=== PATIENT | male | born 1985 | race Caucasian/White ===

== ENCOUNTER 2016-11-09 07:10 | Emergency (ER) | payer MEDICAID, OTHER ==
[~2016-11-09] VITALS: Ht 162.6 cm; Wt 78.0 kg
[~2016-11-09 07:10] MED LIST: ALBU8.5H5 INH; LIDOCAINE 2% (SDV) 5 ML INJ ONE; MIDAZOLAM 1 MG/ML 2 ML INJ ONE; PRED20TA PO
[2016-11-09 07:15] VITALS: Ht 162.6 cm; Wt 78.0 kg
[2016-11-09] MEDS ORDERED: ONDANSETRON 4 MG INJ ONE (07:21)
[2016-11-09] MEDS ORDERED: morphine 4 MG/ML VIAL ONE ×3 (07:22→07:34)
[2016-11-09] MEDS ORDERED: morphine 4 MG/ML VIAL IV STA ×4 (07:24→08:40)
[2016-11-09] MEDS ORDERED: ONDANSETRON 4 MG INJ IV STA (07:24)
[2016-11-09] MEDS ORDERED: HALOPERIDOL 5 MG INJ ONE (07:27)
[2016-11-09] MEDS ORDERED: SOD CHLORIDE 0.9% 1,000 ML IV ONE ×2 (07:30→09:00)
[2016-11-09] MEDS ORDERED: HALOPERIDOL 5 MG INJ IV ONE ×2 (07:30→09:00)
[2016-11-09 07:44] LABS: ADD SCAN DIFF NO
[2016-11-09 07:46] LABS: BASOPHIL # 0.1 10^3/ul (0.0-0.1); BASOPHILS % 0.3 % (0.0-2.0); EOSINOPHILS % 0.1 % (0.0-7.0); HEMATOCRIT 48.3 % (42.0-52.0); LYMPHOCYTES # 1.6 10^3/ul (0.8-2.9); LYMPHOCYTES % 8.3 % (15.0-51.0); MEAN CORPUSCULAR HEMOGLOBIN 31.2 pg (29.0-33.0); MEAN CORPUSCULAR HGB CONC 35.2 g/dl (32.0-37.0); MEAN CORPUSCULAR VOLUME 88.6 fl (82.0-101.0); MEAN PLATELET VOLUME 9.4 fl (7.4-10.4); MONOCYTE # 1.5 10^3/ul (0.3-0.9); MONOCYTES % 7.4 % (0.0-11.0); NEUTROPHIL # 16.4 10^3/ul (1.6-7.5); NEUTROPHILS % 83.4 % (39.0-77.0); PLATELET COUNT 464 10^3/UL (140-415); RED BLOOD COUNT 5.45 10^6/ul (4.70-6.10); RED CELL DISTRIBUTION WIDTH 13.1 % (11.5-14.5); WHITE BLOOD COUNT 19.6 10^3/ul (4.8-10.8)
[2016-11-09] MEDS ORDERED: SOD CHLORIDE 0.9% 100 ML ONE (07:48)
[2016-11-09] MEDS ORDERED: IODIXANOL LOCM 100 ML BTL ONE (07:48)
[2016-11-09 07:56] LABS: ADD UMIC YES; URINE BILIRUBIN (Dip) NEGATIVE (NEGATIVE); URINE BLOOD (Dip) 1+ (NEGATIVE); URINE COLOR LT. YELLOW (YELLOW); URINE GLUCOSE (Dip) NEGATIVE (NEGATIVE); URINE KETONES (Dip) NEGATIVE (NEGATIVE); URINE LEUKOCYTE ESTERASE (Dip) NEGATIVE (NEGATIVE); URINE NITRITE (Dip) NEGATIVE (NEGATIVE); URINE TOTAL PROTEIN (Dip) TRACE (NEGATIVE); URINE UROBILINOGEN (Dip) 0.2 E.U./dL (0.1-1.0)
[2016-11-09 08:05] LABS: INR 1.15; PROTIME 14.7 Sec (12.2-14.2); PT RATIO 1.1
[2016-11-09 08:06] LABS: PARTIAL THROMBOPLASTIN TIME 27.1 Sec (25.0-35.0)
[2016-11-09 08:08] LABS: ALBUMIN 5.2 g/dl (3.3-4.9); CHLORIDE 100 mmol/L (97-110); POTASSIUM 3.4 mmol/L (3.5-5.1); SODIUM 141 mmol/L (135-144)
[2016-11-09 08:09] LABS: BACTERIA,URINE FEW; URINE RBCS 0-2 /HPF (0)
[2016-11-09 08:10] LABS: CREATININE 0.92 mg/dl (0.61-1.24)
[2016-11-09 08:11] LABS: ALANINE AMINOTRANSFERASE 59 IU/L (13-69); ALKALINE PHOSPHATASE 80 IU/L (42-121); ANION GAP 20 (8-16); ASPARTATE AMINO TRANSFERASE 94 IU/L (15-46); BILIRUBIN,INDIRECT 1.8 mg/dl (0-1.1); BILIRUBIN,TOTAL 1.8 mg/dl (0.2-1.3); BLOOD UREA NITROGEN 16 mg/dl (7-20); CALCIUM 9.5 mg/dl (8.4-10.2); CARBON DIOXIDE 24 mmol/L (21-31); GLUCOSE 135 mg/dl (70-220); TOTAL PROTEIN 8.5 g/dl (6.1-8.1)
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
[2016-11-09] MEDS ORDERED: FENTAnyl 50 MCG/ML VIAL IV ONE (08:30)
[2016-11-09] MEDS ORDERED: ETOMIDATE 20 MG INJ IV ONE (08:30)
[2016-11-09] MEDS ORDERED: MIDAZOLAM 1 MG/ML 5 ML INJ IV ONE (08:30)
[2016-11-09] MEDS ORDERED: SUCCINYLCHOLINE CHLORIDE 100 MG/5 ML SYG IV ONE (08:30)
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
[2016-11-09] MEDS ORDERED: PROPOFOL 0 ML ONE ×2 (08:38→09:52)
[2016-11-09 08:39] LABS: BARBITURATES NEGATIVE (NEGATIVE); BENZODIAZEPINES NEGATIVE (NEGATIVE); COCAINE NEGATIVE (NEGATIVE)
[2016-11-09 08:40] LABS: OPIATES POSITIVE (NEGATIVE)
[2016-11-09 08:44] LABS: CK-MB 9.56 ng/ml (0.0-2.4); CREATINE KINASE 2587 IU/L (23-200); TROPONIN-I < 0.012 ng/ml (0.00-0.12)
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
[2016-11-09 08:58] LABS: CANNABINOIDS POSITIVE (NEGATIVE)
[2016-11-09 09:00] VITALS: TEMP 98.1
[2016-11-09] MEDS ORDERED: PROPOFOL 100 ML IV ONE (09:00)
[2016-11-09] MEDS ORDERED: PIPER-TAZO 3.375 GM IV (PMX) 100 ML IVPB ONE (09:00)
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
[2016-11-09 09:38] VITALS: BP 159/92; PULSE 89; RESP 22
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
--- NOTE | 2016-11-09 10:15 | RADRPT ---
PROCEDURE: XR Ankle. CLINICAL INDICATION: Ankle pain. Trauma TECHNIQUE: Three views of the right ankle are available for review COMPARISON: None available FINDINGS: There is a faint avulsion fracture at the medial malleolus. Bone mineral density is preserved. Eval uation of the ankle mortise is somewhat limited due to position. Marked soft tissue swelling is seen and presence of a tibiotalar joint effusion. IMPRESSION: 1. Faint avulsion fracture at the medial malleolus. 2. Marked soft tissue swelling and tibiotalar joint effusion. 3. Limited evaluation of the ankle mortise due to position. 4. If additional detail is warranted consider CT or MRI. RPTAT: PP .Akash Hurd MD, Date Time Electronically viewed and signed by .Akash Hurd MD, MD on 11/09/2016 10:15 .d/
== END 2016-11-09 09:59 | disposition short-term general hospital (02) ==
LOC: E/R 07:10
DX: K66.1 Hemoperitoneum (principal); R40.2252 Coma scale, best verbal response, oriented, at arrival to emergency department; S30.1XXA Contusion of abdominal wall, initial encounter; M62.82 Rhabdomyolysis; S82.51XA Displaced fracture of medial malleolus of right tibia, initial encounter for closed fracture; F15.920 Other stimulant use, unspecified with intoxication, uncomplicated; F17.210 Nicotine dependence, cigarettes, uncomplicated; R40.2142 Coma scale, eyes open, spontaneous, at arrival to emergency department; R40.2362 Coma scale, best motor response, obeys commands, at arrival to emergency department; R07.9 Chest pain, unspecified; S35.229A Unspecified injury of superior mesenteric artery, initial encounter; V49.40XA Driver injured in collision with unspecified motor vehicles in traffic accident, initial encounter
CPT/HCPCS: 31500; 70450; 71010; 71260; 72125; 73610; 74177; 80048; 80076; 80306; 80307; 81001; 82550; 82553; 84484; 85025; 85610; 85730; 86850; 86900; 86901; 93005; 94002; 96374; 96375; J0330; J1630; J2250; J2270; J2405; J2543; J3010; J7030; Q9967; Z7502; Z7610; 81003; J7999

== ENCOUNTER 2017-01-03 09:35 | Emergency (ER) | payer OTHER ==
[~2017-01-03] VITALS: Ht 157.5 cm; Wt 64.0 kg
[2017-01-03 09:38] VITALS: Ht 157.5 cm; Wt 64.0 kg
--- NOTE | 2017-01-03 10:52 | RADRPT ---
PROCEDURE: XR Wrist. CLINICAL INDICATION: Right wrist pain and trauma. TECHNIQUE: AP, bilateral oblique, scaphoid and lateral views of the right wrist were performed. COMPARISON: No prior studies are available for comparison. FINDINGS: The osseous structures are intact. No destructive bony lesions are identified. Interosseous spaces are normal. Soft tissues surrounding the wrist are unremarkable. IMPRESSION: No visualized traumatic injury. If there is high clinical suspicion for traumatic injury, further evaluation with CT should be consi dered. RPTAT: AA .Sander Franks MD, Date Time Electronically viewed and signed by .Sander Franks MD, on 01/03/2017 10:52 .P/
[2017-01-03] MEDS ORDERED: IBUP400T22 PO (10:58)
[2017-01-03] MEDS ORDERED: HYDROCODONE/APAP (5/325) TAB PO ONE (11:00)
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
[2017-01-03 11:40] VITALS: BP 125/80; PULSE 70; RESP 18; TEMP 98
== END 2017-01-03 11:44 | disposition home or self-care (01) ==
LOC: FTE 09:35
DX: S69.91XA Unspecified injury of right wrist, hand and finger(s), initial encounter (principal); F17.210 Nicotine dependence, cigarettes, uncomplicated; V89.2XXA Person injured in unspecified motor-vehicle accident, traffic, initial encounter
CPT/HCPCS: 29125; 73110; Z7502; Z7610